=== PATIENT | female | born 1995 | race Two or more races ===

== ENCOUNTER 2018-10-11 23:30 | Inpatient (IN) | payer OTHER ==
[~2018-10-11] VITALS: Ht 162.6 cm; Wt 90.7 kg
[2018-10-12] MEDS ORDERED: OBSTETRIX EC C1 EACH PO (00:10)
== END 2018-10-15 17:00 | disposition home or self-care, planned readmission (81) | DRG 788 ==
LOC: OBS/DEL 23:30 → LDR 10-12 07:49 → OB/GYN 10-12 07:49 → LDR 10-12 07:59 → OB/GYN 10-12 15:18
PROVIDERS: Specialist
PROC: 4A1HXCZ Monitoring of Products of Conception, Cardiac Rate, External Approach (ICD-10-PCS; 2018-10-12)
PROC: 10D00Z1 Extraction of Products of Conception, Low, Open Approach (ICD-10-PCS; principal; 2018-10-12 12:00)
DX: O62.0 Primary inadequate contractions (principal); Z3A.39 39 weeks gestation of pregnancy; Z37.0 Single live birth

== ENCOUNTER 2018-10-16 15:11 | Inpatient (IN) | payer OTHER ==
[~2018-10-16] VITALS: Ht 121.9 cm; Wt 5.0 kg
[~2018-10-16 15:11] MED LIST: OBSTETRIX EC C1 EACH PO
[2018-10-22] MEDS ORDERED: FUROSEMIDE20 MG PO (14:00)
[2018-10-22] MEDS ORDERED: ENALAPRIL MALE2.5 MG PO (14:00)
[2018-10-22] MEDS ORDERED: Coreg 6.25MG TABLET PO (14:00)
== END 2018-10-22 15:05 | disposition home or self-care (01) | DRG 315 ==
LOC: ER 15:11 → OB/GYN 10-17 18:24
PROC: B246ZZZ Ultrasonography of Right and Left Heart (ICD-10-PCS; principal; 2018-10-17)
PROC: 3E0F7GC Introduction of Other Therapeutic Substance into Respiratory Tract, Via Natural or Artificial Opening (ICD-10-PCS; 2018-10-17)
DX: I97.89 Other postprocedural complications and disorders of the circulatory system, not elsewhere classified (principal); J95.89 Other postprocedural complications and disorders of respiratory system, not elsewhere classified; I31.3 Pericardial effusion (noninflammatory); J90 Pleural effusion, not elsewhere classified; O12.05 Gestational edema, complicating the puerperium; I34.0 Nonrheumatic mitral (valve) insufficiency